=== PATIENT | male | born 1930 | race Caucasian/White ===

== ENCOUNTER 2018-02-04 07:41 | Emergency (ER) | payer OTHER, BC, MEDICARE ==
[~2018-02-04] VITALS: Ht 177.8 cm; Wt 77.1 kg
[2018-02-04 07:41] VITALS: BP 105/65
[~2018-02-04 07:41] MED LIST: ANUSOL HC,ANUCO25 MG PO; ASPIRIN81 M1 PO; DILTIAZEM240 MG PO; FISH OIL OMEGA1 EAC3 PO; HYDROCORT CREAM2.5% TP; IMODIUM2 MG PO; LOPRESSOR25 MG PO; OCUVITE1 TA1 PO; TESSALON PERLE100 M1 PO; VICODIN 5/500 505 MG PO; VITAMIN B121000 MC2 PO
[2018-02-04 08:04] LABS: BASO % 0.1 % (0.0-1.0); HEMATOCRIT 44.2 % (42.0-52.0); HEMOGLOBIN 14.8 g/dl (14.0-18.0); LYMPH # 1.3 10*3/uL (1.3-4.4); LYMPH % 7.8 % (27.0-41.0); MEAN CELL VOLUME 93.2 fl (80.0-94.0); MEAN CORPUSCULAR HGB 31.2 pg (27.0-31.0); MEAN CORPUSCULAR HGB CONC 33.5 g/dl (33.0-37.0); MEAN PLATELET VOLUME 10.5 fl (9.6-12.3); MONO # 1.2 10*3/uL (0.1-1.0); MONO % 7.3 % (3.0-9.0); NEUT # 13.6 10*3/uL (2.3-7.9); NEUT % 84.4 % (47.0-73.0); PLATELET COUNT AUTOMATED 193 10*3/uL (130-400); RED BLOOD COUNT 4.74 10*6/uL (4.50-5.90); WHITE BLOOD COUNT 16.2 10*3/uL (4.8-10.8)
[2018-02-04 08:18] LABS: ALBUMIN 3.6 gm/dl (3.1-4.5); ALKALINE PHOSPHATASE 102 U/L (45-117); BUN 21 mg/dl (7-24); CHLORIDE 98 mmol/L (98-107); CREATININE 1.34 mg/dL (0.70-1.30); POTASSIUM 4.9 mmol/L (3.5-5.1); SGOT/AST 18 IU/L (3-35); SGPT/ALT 12 U/L (12-78); SODIUM 130 mmol/L (136-145); TOTAL PROTEIN 7.9 gm/dL (6.4-8.2)
[2018-02-18] MEDS ORDERED: TYLENOL W/CODEI1 TA4 PO (16:42)
== END 2018-02-04 08:34 | disposition home or self-care (01) ==
LOC: ED 07:41
PROVIDERS: Emergency Medicine
DX: K52.9 Noninfective gastroenteritis and colitis, unspecified (principal); Z79.899 Other long term (current) drug therapy; Z79.82 Long term (current) use of aspirin

== ENCOUNTER 2018-02-05 09:57 | Inpatient (IN) | payer OTHER ==
[2018-02-05] VITALS (8 sets, daily range): BP systolic 97–120; BP diastolic 44–55
[~2018-02-05] VITALS: Ht 180.3 cm; Wt 74.1 kg
--- NOTE | ~2018-02-05 | EKG ---
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
[2018-02-05 10:18] LABS: HEMATOCRIT 43.1 % (42.0-52.0); HEMOGLOBIN 14.6 g/dl (14.0-18.0); MEAN CELL VOLUME 92.5 fl (80.0-94.0); MEAN CORPUSCULAR HGB 31.3 pg (27.0-31.0); MEAN CORPUSCULAR HGB CONC 33.9 g/dl (33.0-37.0); MEAN PLATELET VOLUME 10.7 fl (9.6-12.3); PLATELET COUNT AUTOMATED 163 10*3/uL (130-400); RED BLOOD COUNT 4.66 10*6/uL (4.50-5.90); RED CELL DISTRI WIDTH 14.8 % (0-14.5); WHITE BLOOD COUNT 14.2 10*3/uL (4.8-10.8)
[2018-02-05 10:32] LABS: ALBUMIN 3.1 gm/dl (3.1-4.5); CREATININE 1.59 mg/dL (0.70-1.30); TOTAL PROTEIN 7.6 gm/dL (6.4-8.2)
[2018-02-05 10:34] LABS: POTASSIUM 3.9 mmol/L (3.5-5.1)
[2018-02-05 10:44] LABS: ACT PARTIAL THROMBO TIME 25.4 SECONDS (20.8-31.5); INTERNATIONAL NORM RATIO 1.1 (2.0-3.5)
[2018-02-05 10:48] LABS: TOTAL CELLS COUNTED 100 #CELLS
[2018-02-05 10:49] LABS: PLATELET SUFFICIENCY NORMAL (NORMAL); VACUOLATION OF NEUTROPHILS SLIGHT
[2018-02-06] VITALS: BP 119/45
[2018-02-06 06:12] LABS: MEAN CELL VOLUME 93.3 fl (80.0-94.0); MEAN CORPUSCULAR HGB 31.1 pg (27.0-31.0); MEAN CORPUSCULAR HGB CONC 33.3 g/dl (33.0-37.0); MEAN PLATELET VOLUME 11.1 fl (9.6-12.3); PLATELET COUNT AUTOMATED 117 10*3/uL (130-400); RED BLOOD COUNT 3.73 10*6/uL (4.50-5.90); RED CELL DISTRI WIDTH 15.1 % (0-14.5); WHITE BLOOD COUNT 14.7 10*3/uL (4.8-10.8)
[2018-02-06 06:15] LABS: HEMATOCRIT 34.8 % (42.0-52.0); HEMOGLOBIN 11.6 g/dl (14.0-18.0)
[2018-02-06 06:28] LABS: ALBUMIN 2.4 gm/dl (3.1-4.5); ALKALINE PHOSPHATASE 74 U/L (45-117); BUN 24 mg/dl (7-24); CHLORIDE 99 mmol/L (98-107); CHOLESTEROL 69 mg/dL (<200); CREATININE 0.88 mg/dL (0.70-1.30); HDL CHOLESTEROL 32 mg/dl (40-60); LDL CHOLESTEROL 23 mg/dL (9-159); PHOSPHOROUS 1.9 mg/dL (2.5-4.9); POTASSIUM 3.6 mmol/L (3.5-5.1); SGOT/AST 14 IU/L (3-35); SGPT/ALT 8 U/L (12-78); SODIUM 129 mmol/L (136-145); TOTAL PROTEIN 5.9 gm/dL (6.4-8.2); TRIGLYCERIDES 70 mg/dl (<150); VLDL CHOLESTEROL 14 mg/dL (6-40)
[2018-02-06 06:49] LABS: ACT PARTIAL THROMBO TIME 27.9 SECONDS (20.8-31.5); INTERNATIONAL NORM RATIO 1.1 (2.0-3.5)
[2018-02-06 06:50] LABS: BURR CELLS FEW; PLATELET SUFFICIENCY LOW (NORMAL); TOTAL CELLS COUNTED 100 #CELLS
[2018-02-06 08:00] VITALS: BP 120/61
[2018-02-06 08:25] LABS: VITAMIN D, 25-HYDROXY 38.1 ng/mL (30-100)
[2018-02-06 12:00] VITALS: BP 116/57
[2018-02-06 16:00] VITALS: BP 124/53
[2018-02-06 20:00] VITALS: BP 112/60; BP 114/51
[2018-02-07] VITALS: BP 118/53
[2018-02-07 06:28] LABS: HEMATOCRIT 38.1 % (42.0-52.0); HEMOGLOBIN 12.7 g/dl (14.0-18.0); MEAN CELL VOLUME 93.6 fl (80.0-94.0); MEAN CORPUSCULAR HGB 31.2 pg (27.0-31.0); MEAN CORPUSCULAR HGB CONC 33.3 g/dl (33.0-37.0); MEAN PLATELET VOLUME 11.3 fl (9.6-12.3); PLATELET COUNT AUTOMATED 118 10*3/uL (130-400); RED BLOOD COUNT 4.07 10*6/uL (4.50-5.90); WHITE BLOOD COUNT 18.8 10*3/uL (4.8-10.8)
[2018-02-07 06:54] LABS: ALBUMIN 2.3 gm/dl (3.1-4.5); CHLORIDE 100 mmol/L (98-107); CREATININE 0.73 mg/dL (0.70-1.30); PHOSPHOROUS 2.2 mg/dL (2.5-4.9); POTASSIUM 3.7 mmol/L (3.5-5.1); SODIUM 131 mmol/L (136-145)
[2018-02-07 07:03] LABS: BUN 13 mg/dl (7-24)
[2018-02-07 07:24] LABS: PLATELET SUFFICIENCY LOW (NORMAL); TOTAL CELLS COUNTED 100 #CELLS
[2018-02-07 08:00] VITALS: BP 131/63
[2018-02-07 12:00] VITALS: BP 123/48
[2018-02-07 16:00] VITALS: BP 119/57
[2018-02-07 20:00] VITALS: BP 126/49
[2018-02-08] VITALS: BP 126/43
[2018-02-08 08:00] VITALS: BP 129/60
[2018-02-08 12:00] VITALS: BP 101/59
[2018-02-08 16:00] VITALS: BP 124/54
[2018-02-08 20:00] VITALS: BP 140/62
[2018-02-09] VITALS: BP 128/60
[2018-02-09 04:44] LABS: BILIRUBIN NEGATIVE (NEGATIVE); BLOOD NEGATIVE (NEGATIVE); CLARITY CLEAR (CLEAR); COLOR YELLOW (YELLOW); GLUCOSE NEGATIVE (NEGATIVE); KETONE TRACE (NEGATIVE); LEUKO ESTERASE NEGATIVE (NEGATIVE); NITRITE NEGATIVE (NEGATIVE); SPECIFIC GRAVITY >= 1.030 (1.005-1.030)
[2018-02-09 04:59] LABS: BACTERIA TRACE
[2018-02-09 07:02] LABS: BASO % 0.1 % (0.0-1.0); EOS # 0.1 10*3/uL (0.0-0.4); EOS % 0.9 % (1.0-4.0); HEMATOCRIT 37.6 % (42.0-52.0); HEMOGLOBIN 12.3 g/dl (14.0-18.0); LYMPH # 0.8 10*3/uL (1.3-4.4); LYMPH % 6.2 % (27.0-41.0); MEAN CELL VOLUME 94.2 fl (80.0-94.0); MEAN CORPUSCULAR HGB 30.8 pg (27.0-31.0); MEAN CORPUSCULAR HGB CONC 32.7 g/dl (33.0-37.0); MEAN PLATELET VOLUME 10.6 fl (9.6-12.3); MONO # 0.9 10*3/uL (0.1-1.0); MONO % 7.4 % (3.0-9.0); NEUT # 10.7 10*3/uL (2.3-7.9); NEUT % 84.4 % (47.0-73.0); PLATELET COUNT AUTOMATED 190 10*3/uL (130-400); RED BLOOD COUNT 3.99 10*6/uL (4.50-5.90); RED CELL DISTRI WIDTH 14.7 % (0-14.5); WHITE BLOOD COUNT 12.6 10*3/uL (4.8-10.8)
[2018-02-09 07:15] LABS: BUN 11 mg/dl (7-24); CHLORIDE 97 mmol/L (98-107); CREATININE 0.66 mg/dL (0.70-1.30); PHOSPHOROUS 1.9 mg/dL (2.5-4.9); POTASSIUM 3.4 mmol/L (3.5-5.1); SODIUM 130 mmol/L (136-145)
[2018-02-09 08:00] VITALS: BP 124/61
[2018-02-09] MEDS ORDERED: LEVAQUIN750 M1 PO (10:28)
[2018-02-09 12:00] VITALS: BP 120/53
[2018-02-18] MEDS ORDERED: TYLENOL W/CODEI1 TA4 PO (16:42)
== END 2018-02-09 15:47 | disposition home health service (06) | DRG 871 ==
LOC: ED 09:57 → 5E 11:26 → EDHOLD 11:26 → 5E 12:13
PROVIDERS: Internal Medicine; Nurse Practitioner Family; Student in an Organized Health Care Education/Training Program
DX: A41.9 Sepsis, unspecified organism (principal); N17.0 Acute kidney failure with tubular necrosis; E43 Unspecified severe protein-calorie malnutrition; J18.9 Pneumonia, unspecified organism; E87.2 Acidosis; E87.1 Hypo-osmolality and hyponatremia; J44.0 Chronic obstructive pulmonary disease with (acute) lower respiratory infection; K52.9 Noninfective gastroenteritis and colitis, unspecified; K80.20 Calculus of gallbladder without cholecystitis without obstruction; E87.8 Other disorders of electrolyte and fluid balance, not elsewhere classified; I71.2 Thoracic aortic aneurysm, without rupture; R65.20 Severe sepsis without septic shock; K57.30 Diverticulosis of large intestine without perforation or abscess without bleeding; E83.39 Other disorders of phosphorus metabolism; Z87.891 Personal history of nicotine dependence; Z79.82 Long term (current) use of aspirin; Z79.899 Other long term (current) drug therapy; Z68.22 Body mass index [BMI] 22.0-22.9, adult

== ENCOUNTER 2018-02-13 16:55 | Emergency (ER) | payer OTHER ==
[~2018-02-13] VITALS: Ht 177.8 cm; Wt 72.6 kg
[~2018-02-13 16:55] MED LIST changes: +LEVAQUIN750 M1 PO
[2018-02-13 18:35] VITALS: BP 128/57
[2018-02-18] MEDS ORDERED: TYLENOL W/CODEI1 TA4 PO (16:42)
== END 2018-02-13 20:07 | disposition home or self-care (01) ==
LOC: ED 16:55
DX: R60.0 Localized edema (principal); N17.0 Acute kidney failure with tubular necrosis; J44.9 Chronic obstructive pulmonary disease, unspecified; E78.00 Pure hypercholesterolemia, unspecified; Z90.89 Acquired absence of other organs; Z79.899 Other long term (current) drug therapy; Z79.82 Long term (current) use of aspirin

== ENCOUNTER → 2018-02-18 | Outpatient (CLI) | payer OTHER ==
[~2018-02-18] MED LIST changes: +TYLENOL W/CODEI1 TA4 PO
== END | disposition home or self-care (01) ==
LOC: RESCLI 09:33
DX: Z09 Encounter for follow-up examination after completed treatment for conditions other than malignant neoplasm (principal); J96.10 Chronic respiratory failure, unspecified whether with hypoxia or hypercapnia; J18.9 Pneumonia, unspecified organism; I71.2 Thoracic aortic aneurysm, without rupture; E53.8 Deficiency of other specified B group vitamins; E87.6 Hypokalemia; E83.39 Other disorders of phosphorus metabolism; I70.90 Unspecified atherosclerosis; E87.1 Hypo-osmolality and hyponatremia; M79.89 Other specified soft tissue disorders; I87.8 Other specified disorders of veins; Z99.81 Dependence on supplemental oxygen; Z76.89 Persons encountering health services in other specified circumstances; Z79.82 Long term (current) use of aspirin; Z79.899 Other long term (current) drug therapy; Z88.8 Allergy status to other drugs, medicaments and biological substances; Z87.891 Personal history of nicotine dependence

== ENCOUNTER → 2018-02-23 | Outpatient (CLI) | payer OTHER ==
[2018-02-23 08:41] LABS: BASO % 0.5 % (0.0-1.0); EOS # 0.1 10*3/uL (0.0-0.4); EOS % 1.6 % (1.0-4.0); HEMATOCRIT 40.5 % (42.0-52.0); HEMOGLOBIN 13.2 g/dl (14.0-18.0); LYMPH # 1.3 10*3/uL (1.3-4.4); LYMPH % 20.8 % (27.0-41.0); MEAN CELL VOLUME 94.6 fl (80.0-94.0); MEAN CORPUSCULAR HGB 30.8 pg (27.0-31.0); MEAN CORPUSCULAR HGB CONC 32.6 g/dl (33.0-37.0); MEAN PLATELET VOLUME 9.4 fl (9.6-12.3); MONO # 0.4 10*3/uL (0.1-1.0); NEUT # 4.4 10*3/uL (2.3-7.9); NEUT % 69.6 % (47.0-73.0); PLATELET COUNT AUTOMATED 337 10*3/uL (130-400); RED BLOOD COUNT 4.28 10*6/uL (4.50-5.90); WHITE BLOOD COUNT 6.3 10*3/uL (4.8-10.8)
[2018-02-23 09:00] LABS: ALBUMIN 2.8 gm/dl (3.1-4.5); ALKALINE PHOSPHATASE 86 U/L (45-117); BUN 7 mg/dl (7-24); CHLORIDE 98 mmol/L (98-107); CREATININE 0.72 mg/dL (0.70-1.30); PHOSPHOROUS 2.8 mg/dL (2.5-4.9); POTASSIUM 4.1 mmol/L (3.5-5.1); SGOT/AST 20 IU/L (3-35); SGPT/ALT 12 U/L (12-78); SODIUM 132 mmol/L (136-145); TOTAL PROTEIN 7.1 gm/dL (6.4-8.2)
== END | disposition home or self-care (01) ==
LOC: WOUNDCARE 02:57 → LAB 02:57 → WOUNDCARE 15:25
PROVIDERS: Student in an Organized Health Care Education/Training Program
DX: Z09 Encounter for follow-up examination after completed treatment for conditions other than malignant neoplasm (principal); E83.39 Other disorders of phosphorus metabolism; I70.90 Unspecified atherosclerosis; E87.6 Hypokalemia; E87.1 Hypo-osmolality and hyponatremia

== ENCOUNTER 2018-10-19 22:30 | Inpatient (IN) | payer OTHER ==
[~2018-10-19] VITALS: Ht 177.8 cm; Wt 70.5 kg
--- NOTE | ~2018-10-19 | EKG ---
[place] [address], [place] ELECTROCARDIOGRAM REPORT NAME: SAMM ROJAS SR UNIT #: [id number] ROOM: 521 DOCTOR: MERCY DRAFT REPORT BIRTHDATE: [address] 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
[2018-10-19 22:32] VITALS: BP 118/60
[2018-10-19 23:18] LABS: HEMATOCRIT 46.7 % (42.0-52.0); HEMOGLOBIN 15.4 g/dl (14.0-18.0); MEAN CELL VOLUME 94.3 fl (80.0-94.0); MEAN CORPUSCULAR HGB 31.1 pg (27.0-31.0); MEAN PLATELET VOLUME 11.2 fl (9.6-12.3); PLATELET COUNT AUTOMATED 198 10*3/uL (130-400); RED BLOOD COUNT 4.95 10*6/uL (4.50-5.90); RED CELL DISTRI WIDTH 14.6 % (0-14.5); WHITE BLOOD COUNT 18.3 10*3/uL (4.8-10.8)
[2018-10-19 23:26] LABS: BILIRUBIN 2+ (NEGATIVE); BLOOD NEGATIVE (NEGATIVE); CLARITY SL CLOUDY (CLEAR); COLOR YELLOW (YELLOW); GLUCOSE NEGATIVE (NEGATIVE); KETONE TRACE (NEGATIVE); LEUKO ESTERASE NEGATIVE (NEGATIVE); NITRITE POSITIVE (NEGATIVE); SPECIFIC GRAVITY >= 1.030 (1.005-1.030)
[2018-10-19 23:31] LABS: BACTERIA 2+; HYALINE CAST 45-50
[2018-10-19 23:35] LABS: ALBUMIN 3.5 gm/dl (3.1-4.5); ALKALINE PHOSPHATASE 86 U/L (45-117); BUN 22 mg/dl (7-24); CHLORIDE 98 mmol/L (98-107); CREATININE 1.35 mg/dL (0.70-1.30); LIPASE 43 U/L (73-393); POTASSIUM 4.4 mmol/L (3.5-5.1); SGOT/AST 16 IU/L (3-35); SGPT/ALT 11 U/L (12-78); SODIUM 129 mmol/L (136-145); TOTAL PROTEIN 8.2 gm/dL (6.4-8.2)
[2018-10-19 23:42] LABS: PLATELET SUFFICIENCY NORMAL (NORMAL); TOTAL CELLS COUNTED 100 #CELLS
[2018-10-20 01:14] VITALS: BP 112/56
--- NOTE | 2018-10-20 01:34 | NUR ---
A 88, admitted to , under the services of STEFF Villatoro DO with a diagnosis of sbo. Chief complaint is abd pain. Patient arrived via stretcher from ER. Monitor applied. Initial assessment completed. Vital signs taken and recorded. STEFF VILLATORO DO notified of admission to the unit. Orders received. See assessment for past medical history, medications and allergies. Patient and/or family oriented to unit. [facility] visitation policy reviewed. Clothing/patient valuable form completed. ROHIT SWEENEY
[2018-10-20 01:35] LABS: ACT PARTIAL THROMBO TIME 28.4 SECONDS (20.0-32.1)
[2018-10-20 01:45] VITALS: BP 121/61
[2018-10-20] MEDS ORDERED: NATURE'S BLEND F1 MG PO (01:46)
[2018-10-20] MEDS ORDERED: B12,B-12,B 12500 MC1 PO (01:47)
--- NOTE | 2018-10-20 01:48 | NUR ---
PATIENT BROUGHT IN MEDICATIONS FROM HOME. ONLY MEDICATION NOT FROM HOME ON JUN WAS VITAMIN B12 500MG DAILY
--- NOTE | 2018-10-20 02:07 | NUR ---
DR EASTON AT BEDSIDE
--- NOTE | 2018-10-20 06:34 | NUR ---
DR RILEY AWARE OF CONSULT
[2018-10-20 06:35] LABS: BASO % 0.1 % (0.0-1.0); EOS % 0.1 % (1.0-4.0); HEMATOCRIT 43.5 % (42.0-52.0); LYMPH # 1.3 10*3/uL (1.3-4.4); LYMPH % 9.1 % (27.0-41.0); MEAN CELL VOLUME 94.6 fl (80.0-94.0); MEAN CORPUSCULAR HGB 30.4 pg (27.0-31.0); MEAN CORPUSCULAR HGB CONC 32.2 g/dl (33.0-37.0); MEAN PLATELET VOLUME 11.3 fl (9.6-12.3); MONO % 6.5 % (3.0-9.0); NEUT # 12.3 10*3/uL (2.3-7.9); NEUT % 83.8 % (47.0-73.0); PLATELET COUNT AUTOMATED 167 10*3/uL (130-400); RED CELL DISTRI WIDTH 14.5 % (0-14.5); WHITE BLOOD COUNT 14.7 10*3/uL (4.8-10.8)
[2018-10-20 07:02] LABS: ALBUMIN 3.3 gm/dl (3.1-4.5); ALKALINE PHOSPHATASE 83 U/L (45-117); BUN 25 mg/dl (7-24); CHLORIDE 96 mmol/L (98-107); CREATININE 1.35 mg/dL (0.70-1.30); PHOSPHOROUS 3.1 mg/dL (2.5-4.9); POTASSIUM 4.5 mmol/L (3.5-5.1); SGOT/AST 13 IU/L (3-35); SGPT/ALT 8 U/L (12-78); SODIUM 132 mmol/L (136-145); TOTAL PROTEIN 7.5 gm/dL (6.4-8.2)
--- NOTE | 2018-10-20 07:25 | NUR ---
DR RILEY UP TO FLOOR TO SEE PATIENT. STATES PATIENT CAN BE A CLEAR LIQUID DIET
[2018-10-20 08:00] VITALS: BP 130/68
--- NOTE | 2018-10-20 09:26 | NUR ---
PATIENT INSTRUCTED ON INCENTIVE SPIROMETRY USE.
[2018-10-20 12:00] VITALS: BP 120/66
[2018-10-20 13:10] LABS: BUN 23 mg/dl (7-24); CHLORIDE 98 mmol/L (98-107); CREATININE 1.05 mg/dL (0.70-1.30); POTASSIUM 3.9 mmol/L (3.5-5.1); SODIUM 131 mmol/L (136-145)
[2018-10-20 16:00] VITALS: BP 105/52
[2018-10-20 20:00] VITALS: BP 119/63
--- NOTE | 2018-10-20 21:31 | NUR ---
PATIENT RESTING IN BED. ABDOMEN FIRM AND DISTENDED. DENIES PAIN AT THIS TIME. FLUIDS INFUSING WITHOUT DIFFICULTY. BED IN LOWEST POSITION, CALL LIGHT IN REACH
--- NOTE | 2018-10-20 21:38 | NUR ---
DR RILEY AWARE OF PATIENT'S ABDOMEN BEING DISTENDED.PATIENT VOMITING LARGE AMOUNT OF EMESIS. ORDER TAKEN
--- NOTE | 2018-10-20 21:51 | NUR ---
MEDICATED WITH PRN ZOFRAN FOR LARGE EMESIS.
--- NOTE | 2018-10-20 22:30 | NUR ---
NG tube inserted and secured without difficulty via LEFT nares. Patient tolerated procedure well. Connected to intermittent suction VERIFIED BY ROHIT Guajardo
--- NOTE | 2018-10-20 23:00 | NUR ---
OK TO USE NG TUBE PER DR ERAZO.1800CC DARK GREEN FLUID OUT
[2018-10-21] VITALS: BP 136/67
--- NOTE | 2018-10-21 02:16 | NUR ---
PATIENT RESTING IN BED WITH EYES CLOSED. NG TUBE TO LOW INTERMITTENT SUCTION PER ORDER. 700 CC GREEN FLUID IN THIRD CANISTER. NO S/S OF DISTRESS. BED IN LOWEST POSITION, CALL LIGHT IN REACH
[2018-10-21 04:00] VITALS: BP 131/64
--- NOTE | 2018-10-21 05:33 | NUR ---
PATIENT RESTING IN BED WITH NO S/S OF DISTRESS. BED IN LOWEST POSITION, CALL LIGHTIN REACH
--- NOTE | 2018-10-21 06:52 | NUR ---
DR RILEY CALLED IN TO CHECK ON PATIENT. UPDATED ON OUTPUT FROM NG TUBE. ORDER TAKEN FOR KUB TO BE DONE TODAY
--- NOTE | 2018-10-21 07:35 | NUR ---
TRANSPORT HERE TO GET PATIENT FOR KUB. DR RILEY CALLED TO VERIFY THAT NG TUBE CAN BE CLAMPED FOR PATIENT TO GO OFF THE FLOOR. PATIENT OK'S TO GO TO XRAY.
[2018-10-21 08:00] VITALS: BP 127/66
[2018-10-21 08:04] LABS: BASO % 0.1 % (0.0-1.0); EOS % 0.2 % (1.0-4.0); HEMATOCRIT 42.9 % (42.0-52.0); HEMOGLOBIN 14.1 g/dl (14.0-18.0); MEAN CELL VOLUME 94.3 fl (80.0-94.0); MEAN CORPUSCULAR HGB CONC 32.9 g/dl (33.0-37.0); MEAN PLATELET VOLUME 11.5 fl (9.6-12.3); MONO # 0.8 10*3/uL (0.1-1.0); MONO % 8.5 % (3.0-9.0); NEUT # 7.3 10*3/uL (2.3-7.9); PLATELET COUNT AUTOMATED 170 10*3/uL (130-400); RED BLOOD COUNT 4.55 10*6/uL (4.50-5.90); RED CELL DISTRI WIDTH 14.5 % (0-14.5); WHITE BLOOD COUNT 9.1 10*3/uL (4.8-10.8)
--- NOTE | 2018-10-21 08:15 | NUR ---
NG to left nare hooked up to PAUL putting out dark green liquid Mili Mcalin SN OVCT
[2018-10-21 08:19] LABS: ALBUMIN 3.1 gm/dl (3.1-4.5); ALKALINE PHOSPHATASE 76 U/L (45-117); BUN 17 mg/dl (7-24); CHLORIDE 100 mmol/L (98-107); CREATININE 0.88 mg/dL (0.70-1.30); SGOT/AST 14 IU/L (3-35); SGPT/ALT 9 U/L (12-78); SODIUM 131 mmol/L (136-145); TOTAL PROTEIN 7.4 gm/dL (6.4-8.2)
--- NOTE | 2018-10-21 09:00 | NUR ---
Rice Drier in to talk to patient. Patient states lives at home with girlfriend. There are few steps in the home. Physician: [facility] Home health services: none Patient's level of ADLs: INDEPENDENT Patient has working utilities: all working DME: cane Follow-up physician's appointment after d/c: will be made by hospitalist nurse director upon discharge Does patient want to access PORTAL?: no Discharge plan discussed with patient, patient lives at home with girlfriend, he states he is independent in adls and independent in ambulation with his cane, he doesn't drive but his girlfriend does patient states he will be going home when able, discussed with him [facility]NA and explained their services, patient declined any home services at this time. BERTHA DELA CRUZ
[2018-10-21 12:00] VITALS: BP 124/70
--- NOTE | 2018-10-21 12:00 | NUR ---
DR RILEY IN TO SEE PATIENT. PATIENT OK TO HAVE SMALL AMOUNT OF ICE CHIPS. OK TO BE DISCONNECTED FROM SUCTION TO WALK FOR SMALL AMOUNTS OF TIME.
--- NOTE | 2018-10-21 14:35 | NUR ---
PATIENT PULLED IV OUT LEFT AC.
[2018-10-21 16:00] VITALS: BP 105/53
[2018-10-21 20:00] VITALS: BP 127/63
--- NOTE | 2018-10-21 20:00 | NUR ---
AWAKE & ALERT SITTING UP IN BED WITH HOB ELEVATED. NG TUBE INTACT TO LEFT NARES. PT. VOICES NO C/O AT THIS TIME; WILL CONTINUE TO MONITOR. CALL LIGHT WITHIN REACH.
--- NOTE | 2018-10-21 23:06 | NUR ---
PATIENT RESTING IN BED WITH EYES CLOSED. RESPS EASY AND REGULAR. NG TUBE INTACT TO LEFT NARES. PATIENT DENIES NEEDS AT THIS TIME. BED IN LOWEST POSITION, CALL LIGHT IN REACH
--- NOTE | 2018-10-21 23:30 | NUR ---
PATIENT'S NG TUBE NOT DRAINING AT THIS TIME. TAPE ON TUBE LOOKED MISPLACED TO THIS RN. DR ERAZO MADE AWARE OF STAT XRAY ORDERED TO CHECK PLACEMENT.
--- NOTE | 2018-10-21 23:47 | NUR ---
PATIENT HAD LARGE BOWEL MOVEMENT AT THIS TIME. BROWN IN COLOR
[2018-10-22] VITALS: BP 125/65
--- NOTE | 2018-10-22 00:12 | NUR ---
DR RILEY AWARE OF CRITICAL RESULTS REGARDING NG TUBE. STATES TO ADVANCE IT INTO THE STOMACH
--- NOTE | 2018-10-22 00:25 | NUR ---
NG TUBE ADJUSTED. XRAY ORDERED TO VERIFY PLACEMENT
--- NOTE | 2018-10-22 01:42 | NUR ---
SUCTION TURNED ON PER ORDER
[2018-10-22 08:00] VITALS: BP 123/72
[2018-10-22 08:15] VITALS: BP 122/64
--- NOTE | 2018-10-22 10:00 | NUR ---
PT ALERT AND PLESANT. NG TO LOW INTERMITTENT SUCTION INTACT TO LEFT NARE. DENIES ANY PAIN OR DISCOMFORT. ENCOURAGED PT TO USE INSENTIVE SPIROMETER AT BEDSIDE. MELANY MENDOZA OVCT STUDENT/ LORENZO BYRD OVCT INSTRUCTOR
--- NOTE | 2018-10-22 10:40 | NUR ---
DR WALLS CALLED AND NOTIFIED OF PT NPO STATUS R/T MEDS. MEDS HAVE BEEN HELD. BP AND HR HAVE BOTH BEEN STABLE. HE STATES THEY WILL TAKE A LOOK AT IT.
[2018-10-22 12:00] VITALS: BP 128/70
--- NOTE | 2018-10-22 12:38 | NUR ---
PT VISITING WITH FRIEND AT [facility]. NO COMPLAINTS. MELANY MENDOZA OVCT STUDENT/ LORENZO BYRD OVCT INSTRUCTOR
[2018-10-22 16:00] VITALS: BP 149/66
[2018-10-22 20:00] VITALS: BP 136/73
[2018-10-23] VITALS: BP 130/58
[2018-10-23 07:26] LABS: BUN 11 mg/dl (7-24); CHLORIDE 105 mmol/L (98-107); CREATININE 0.59 mg/dL (0.70-1.30); POTASSIUM 3.5 mmol/L (3.5-5.1); SODIUM 137 mmol/L (136-145)
[2018-10-23 08:00] VITALS: BP 129/90
--- NOTE | 2018-10-23 08:00 | NUR ---
DR RILEY IN TO SEE PT, ORDERS RECEICED TO REMOVE NG TUBE AND START LIQUID DIET. HE STATES IF PT DOES OK CAN BE ADVANCED TO SOFT, BUT "NOT TO OVER DO IT" IF OK WITH THAT HE CAN BE DISCHARGED HOME. NG REMOVED FROM LEFT NARE, PT TOLERATED WELL. CALL LIGHT IN [facility]. WILL MONITOR
[2018-10-23 12:00] VITALS: BP 134/61
--- NOTE | 2018-10-23 13:55 | NUR ---
PT AMBULATING IN HALLS WITH . WILL MONITOR
[2018-10-23 16:00] VITALS: BP 106/61
[2018-10-23 20:00] VITALS: BP 167/86
--- NOTE | 2018-10-23 20:43 | NUR ---
24 HR chart check completed.
--- NOTE | 2018-10-23 21:00 | NUR ---
SITTING IN BED, NO DISTRESS NOTED. RESPIRATIONS EASY. LUNGS DIMINISHED, CLEAR. PULSE OX 97% RA. ABD SOFT WITH HYPOACTIVE BOWEL SOUNDS. +1 PITTING BLE EDEMA. OFFERED AND EDUCATED REGARDING TEDS, RECEPTIVE AND TEDS PLACED AT BEDSIDE. IV FLUIDS INFUSING PER ORDER. CALL LIGHT WITHIN REACH. NO VOICED COMPLAINTS
[2018-10-24] VITALS: BP 120/47; BP 128/50
--- NOTE | 2018-10-24 00:30 | NUR ---
SLEEPING WITH NO DISTRESS NOTED. RESPIRATIONS EASY. VSS. IV FLUIDS MAINTAINED. CALL LIGHT WITHIN REACH
--- NOTE | 2018-10-24 03:10 | NUR ---
CONTINUES TO SLEEP
--- NOTE | 2018-10-24 06:00 | NUR ---
SLEPT THROUGHOUT NIGHT WITH NO DISTRESS NOTED. RESPIRATIONS EASY. IV FLUIDS MAINTAINED. CALL LIGHT WITHIN REACH. NO VOICED COMPLAINTS SHIFT
[2018-10-24 06:36] LABS: EOS # 0.1 10*3/uL (0.0-0.4); HEMATOCRIT 36.8 % (42.0-52.0); HEMOGLOBIN 12.5 g/dl (14.0-18.0); LYMPH # 1.2 10*3/uL (1.3-4.4); MEAN CELL VOLUME 93.4 fl (80.0-94.0); MEAN CORPUSCULAR HGB 31.7 pg (27.0-31.0); MEAN PLATELET VOLUME 10.8 fl (9.6-12.3); MONO # 0.5 10*3/uL (0.1-1.0); MONO % 8.5 % (3.0-9.0); NEUT # 3.6 10*3/uL (2.3-7.9); NEUT % 66.1 % (47.0-73.0); PLATELET COUNT AUTOMATED 159 10*3/uL (130-400); RED BLOOD COUNT 3.94 10*6/uL (4.50-5.90); RED CELL DISTRI WIDTH 13.8 % (0-14.5); WHITE BLOOD COUNT 5.4 10*3/uL (4.8-10.8)
[2018-10-24 07:01] LABS: CREATININE 0.64 mg/dL (0.70-1.30)
[2018-10-24 08:00] VITALS: BP 135/63
--- NOTE | 2018-10-24 09:00 | NUR ---
case management visits with patient, patient states he will be going home when medically stable, again discussed with him VNA and he declines any services at this time, case management will follow
--- NOTE | 2018-10-24 11:54 | NUR ---
A 88, admitted to 5E, under the services of STEFF Villatoro DO with a diagnosis of ESOPHAGEAL FOREIGN BODY. Chief complaint is FOREIGN BODY IN THE THROAT. Patient arrived via stretcher from ER. Monitor applied. Initial assessment completed. Vital signs taken and recorded. STEFF VILLATORO DO notified of admission to the unit. Orders received. See assessment for past medical history, medications and allergies. Patient and/or family oriented to unit. [facility]TH FLOOR visitation policy reviewed. Clothing/patient valuable form completed. ZE HAUSER
[2018-10-24 12:00] VITALS: BP 126/65
[2018-10-24 16:00] VITALS: BP 160/66
--- NOTE | 2018-10-24 16:01 | NUR ---
PER CAMPBELL DESAI STOP HEPARIN DRIP TONIGHT. PATIENT WILL BE STARTED ON ELIQUIS IN THE MORNING.
--- NOTE | 2018-10-24 18:06 | NUR ---
Discharge instructions reviewed with patient/family. Patient receptive and verbalizes understanding. Follow-up care arranged. Written instructions given to patient/family. IV REMOVED. PATIENT LEFT VIA WHEELCHAIR WITH GIRLFRIEND. ZE HAUSER
== END 2018-10-24 18:06 | disposition home or self-care (01) | DRG 177 ==
LOC: ED 22:30 → 5E 10-20 01:09 → EDHOLD 10-20 01:09 → 5E 10-20 01:17
PROVIDERS: Family Medicine; Internal Medicine; Student in an Organized Health Care Education/Training Program; ADMIT Internal Medicine
PROC: 0D9670Z Drainage of Stomach with Drainage Device, Via Natural or Artificial Opening (ICD-10-PCS; principal; 2018-10-20)
DX: J15.6 Pneumonia due to other Gram-negative bacteria (principal); N17.0 Acute kidney failure with tubular necrosis; J44.0 Chronic obstructive pulmonary disease with (acute) lower respiratory infection; E87.1 Hypo-osmolality and hyponatremia; K56.600 Partial intestinal obstruction, unspecified as to cause; N39.0 Urinary tract infection, site not specified; I10 Essential (primary) hypertension; R73.9 Hyperglycemia, unspecified; R80.9 Proteinuria, unspecified; E53.8 Deficiency of other specified B group vitamins; K57.90 Diverticulosis of intestine, part unspecified, without perforation or abscess without bleeding; Z91.81 History of falling; Z87.01 Personal history of pneumonia (recurrent); Z87.891 Personal history of nicotine dependence; Z79.82 Long term (current) use of aspirin; Z79.899 Other long term (current) drug therapy; Z85.46 Personal history of malignant neoplasm of prostate

== ENCOUNTER → 2019-11-16 | Outpatient (CLI) | payer MEDICARE ==
[~2019-11-16] MED LIST changes: +B12,B-12,B 12500 MC1 PO; +NATURE'S BLEND F1 MG PO
== END | disposition home or self-care (01) ==
LOC: RAD 12:58
DX: J44.9 Chronic obstructive pulmonary disease, unspecified (principal); J61 Pneumoconiosis due to asbestos and other mineral fibers

== ENCOUNTER 2021-03-22 22:59 | Inpatient (IN) | payer MEDICARE ==
[~2021-03-22] VITALS: Ht 175.2 cm; Wt 72.7 kg
[2021-03-22 23:20] VITALS: BP 112/47
[2021-03-22 23:48] VITALS: BP 110/90
[2021-03-22 23:48] LABS: HEMATOCRIT 47.3 % (42.0-52.0); MEAN CELL VOLUME 96.1 fl (80.0-94.0); MEAN CORPUSCULAR HGB 29.5 pg (27.0-31.0); MEAN CORPUSCULAR HGB CONC 30.7 g/dl (33.0-37.0); MEAN PLATELET VOLUME 11.3 fl (9.6-12.3); PLATELET COUNT AUTOMATED 150 10*3/uL (130-400); RED BLOOD COUNT 4.92 10*6/uL (4.50-5.90); RED CELL DISTRI WIDTH 15.8 % (0-14.5); WHITE BLOOD COUNT 13.4 10*3/uL (4.8-10.8)
[2021-03-23] VITALS (12 sets, daily range): BP systolic 0–155; BP diastolic 0–115
[2021-03-23 00:05] LABS: ALBUMIN 3.1 gm/dl (3.1-4.5); CREATININE 1.46 mg/dL (0.70-1.30); TOTAL PROTEIN 8.3 gm/dL (6.4-8.2)
[2021-03-23 00:06] LABS: PLATELET SUFFICIENCY LOW (NORMAL); TOTAL CELLS COUNTED 100 #CELLS
[2021-03-23 03:55] LABS: ARTERIAL BLOOD GAS PH 7.294 (7.35-7.45); ARTERIAL BLOOD GAS PO2 146.6 (80-90)
[2021-03-23 03:56] LABS: ABG BASE EXCESS -10.3 mmol/L (-2.0-2.0)
[2021-03-23 04:26] LABS: HEMATOCRIT 47.2 % (42.0-52.0); MEAN CELL VOLUME 94.8 fl (80.0-94.0); MEAN CORPUSCULAR HGB 29.3 pg (27.0-31.0); MEAN CORPUSCULAR HGB CONC 30.9 g/dl (33.0-37.0); MEAN PLATELET VOLUME 11.7 fl (9.6-12.3); PLATELET COUNT AUTOMATED 119 10*3/uL (130-400); RED BLOOD COUNT 4.98 10*6/uL (4.50-5.90); RED CELL DISTRI WIDTH 15.6 % (0-14.5); WHITE BLOOD COUNT 6.4 10*3/uL (4.8-10.8)
[2021-03-23 04:35] LABS: ACT PARTIAL THROMBO TIME 30.9 SECONDS (20.0-32.1); INTERNATIONAL NORM RATIO 1.2 (2.0-3.5)
[2021-03-23 04:44] LABS: ALBUMIN 2.6 gm/dl (3.1-4.5); CREATININE 2.3 mg/dL (0.70-1.30); TOTAL CELLS COUNTED 100 #CELLS
[2021-03-23 04:45] LABS: PLATELET SUFFICIENCY LOW (NORMAL)
[2021-03-23 04:48] LABS: POTASSIUM 5.1 mmol/L (3.5-5.1)
[2021-03-23 04:52] LABS: FREE T4 1.5 ng/dl (0.76-1.46); THYROID STIM HORMONE (HS) 9.49 uIU/ml (0.358-4.75)
[2021-03-23 08:34] LABS: FERRITIN 1615.7 ng/mL (22.0-322.0); VITAMIN D, 25-HYDROXY 31.6 ng/mL (30-100)
[2021-03-23 09:18] LABS: ABG BASE EXCESS -18.4 mmol/L (-2.0-2.0); ARTERIAL BLOOD GAS PO2 104.9 (80-90)
[2021-03-23 09:19] LABS: ARTERIAL BLOOD GAS PH 7.03 (7.35-7.45)
== END 2021-03-23 10:07 | DRG 871 ==
LOC: ED 22:59 → EDHOLD 03-23 01:38
PROVIDERS: Emergency Medicine; Internal Medicine; ADMIT Family Medicine; ATTEND Family Medicine
PROC: XW033E5 Introduction of Remdesivir Anti-infective into Peripheral Vein, Percutaneous Approach, New Technology Group 5 (ICD-10-PCS; principal; 2021-03-23)
PROC: 5A09357 Assistance with Respiratory Ventilation, Less than 24 Consecutive Hours, Continuous Positive Airway Pressure (ICD-10-PCS; 2021-03-23)
DX: A41.9 Sepsis, unspecified organism (principal); J18.9 Pneumonia, unspecified organism; N17.0 Acute kidney failure with tubular necrosis; E87.2 Acidosis; E87.1 Hypo-osmolality and hyponatremia; J44.0 Chronic obstructive pulmonary disease with (acute) lower respiratory infection; K56.609 Unspecified intestinal obstruction, unspecified as to partial versus complete obstruction; Z20.822 Contact with and (suspected) exposure to COVID-19; R65.20 Severe sepsis without septic shock; E87.8 Other disorders of electrolyte and fluid balance, not elsewhere classified; N18.31 Chronic kidney disease, stage 3a; I12.9 Hypertensive chronic kidney disease with stage 1 through stage 4 chronic kidney disease, or unspecified chronic kidney disease; E83.41 Hypermagnesemia; K57.90 Diverticulosis of intestine, part unspecified, without perforation or abscess without bleeding; I71.2 Thoracic aortic aneurysm, without rupture; K76.0 Fatty (change of) liver, not elsewhere classified; E53.8 Deficiency of other specified B group vitamins; Z87.891 Personal history of nicotine dependence; Z79.82 Long term (current) use of aspirin; Z79.899 Other long term (current) drug therapy